=== PATIENT | male | born 1940 | race Caucasian/White ===

== ENCOUNTER 2021-05-30 13:33 | Inpatient (IN) | payer MEDICARE, OTHER, SELFPAY ==
[2021-05-30 13:34] VITALS: BP 122/84; PULSE 77; RESP 18; TEMP 36.6; O2SAT 94; BMI 32.3
--- NOTE | 2021-05-30 14:26 | CT_ITS ---
STUDY: CT BRAIN WITHOUT CONTRAST REASON FOR EXAM: Male, 80 years old. Head injury due to a fall. RADIATION DOSAGE (If Supplied By Facility): CTDIvol = ( 44.99 ) mGy, DLP = ( 846.73 ) mGycm TECHNIQUE: Transaxial CT imaging of the brain was performed without administration of intravenous contrast material. Individualized dose optimization techniques were used for this CT. COMPARISON: No relevant priors. FINDINGS: Normal soft tissue structures. Normal calvarium. There is moderate cerebral atrophy with widening of the extra-axial spaces and ventricular dilatation. There are areas of decreased attenuation within the white matter tracts of the supratentorial brain, consistent with microvascular disease changes. Normal basal ganglia and thalami. Normal brainstem. Normal cerebellum. There is no intracranial hemorrhage. There are no findings of an acute ischemic infarction. Atherosclerotic calcification of the vertebral arteries and cavernous portions of the internal carotid arteries bilaterally. Mild mucosal thickening of the ethmoid sinuses. CT/Brain/Head without Contrast IMPRESSION: Chronic involutional changes of the brain. Electronically Signed: Patricio Weinberg MD at 15:31 EDT , Service support ,
--- NOTE | 2021-05-30 14:28 | EDS_ITS ---
HPI History of Present Illness Chief Complaint: Weakness Informant: patient and family Narrative Narrative: Patient presents with son progressive weakness over 11 days. Nonproductive cough. States loss of taste and smell. No vomiting or diarrhea. States weakness has progressed. 6 days ago diagnosed with Covid at urgent care in [place]. Denies respiratory complaints. Denies chest pains. Past Thursday mechanical fall tripping hitting his head. There is no loss of conscious. He is on warfarin for history of atrial fibrillation. Overnight yesterday so weak he went down in the bathroom requiring his sons to help him up. He started using a walker. Is too weak to get around. Denies injuries from this fall yesterday. No chest or abdominal pain. No urinary symptoms. Reports having tremors. Per son normally active with yard work. Patient history of coronary stent, BPH, hypertension, hyperlipidemia, diabetes. [facility] Medical History (Updated 05/30/21 @ 20:28 by Candace Varghese) Atrial fibrillation CPAP (continuous positive airway pressure) dependence DM type 2 (diabetes mellitus, type 2) Former smoker HTN (hypertension) Irregular heart beat Sleep apnea Home Medications carvedilol 25 mg PO BID 05/30/21 [History Last Taken 05/30/21] digoxin 125 mcg PO DAILY 05/30/21 [History Last Taken 05/30/21] glimepiride 4 mg PO BID 05/30/21 [History Last Taken 05/30/21] losartan 25 mg PO DAILY 05/30/21 [History Last Taken 05/30/21] metformin 850 mg PO TID 05/30/21 [History Last Taken 05/30/21] pravastatin 40 mg PO DAILY 05/30/21 [History Last Taken 05/30/21] sitagliptin [Januvia] 50 mg PO DAILY 05/30/21 [History Last Taken 05/30/21] spironolacton-hydrochlorothiaz 1 tab PO DAILY 05/30/21 [History Last Taken 05/11 08/30] tamsulosin 0.4 mg PO DAILY 05/30/21 [History Last Taken 05/30/21] warfarin 5 mg PO DAILY 05/30/21 [History Last Taken 05/30/21] Allergy/AdvReac Type Severity Reaction Status Date / Time Penicillins Allergy Rash Verified 05/30/21 13:37 Family History (Updated 05/30/21 @ 18:[address] uGru López MD) Other Cancer Heart disease Surgical History H/O shoulder surgery History of appendectomy Social History Smoking Status: Never smoker ROS ROS ED Constitutional Constitutional ED: Denies chills, fever(s) or sweats Eyes Eyes: Denies change in vision ENT ENT ED: Denies dysphagia or sore throat Cardiovascular Cardiovascular: Denies chest pain, leg edema, palpitations or racing heartbeat Respiratory/Chest Respiratory/Chest: Reports cough; Denies dyspnea or dyspnea on exertion Gastrointestinal Gastrointestinal: Denies abdominal pain, diarrhea, nausea or vomiting Genitourinary Genitourinary ED: Denies dysuria, hematuria or urinary frequency Musculoskeletal Musculoskeletal: Denies back pain, extremity pain or neck pain Integumentary Denies rash or wounds Neurologic Neurologic: Reports weakness; Denies headache(s) or paresthesias EXAM Physical Exam Const Vital Signs: 05/30/21 13:34 05/30/21 14:11 05/30/21 16:00 Temperature 97.8 F Temperature Source Temporal Pulse Rate 77 92 Respiratory Rate 18 24 H Respiratory Effort Normal Respiratory Pattern Normal Blood Pressure 122/84 H 154/95 H Blood Pressure Mean 96 114 Pulse Ox 94 92 Oxygen Delivery Method Room Air Positive well nourished and well developed General Appearance ED: well developed and NAD HEENT Reports moist mucous membranes HEENT Narrative: Small abrasion right mid forehead, no ecchymosis bleeding or drainage. normocephalic and atraumatic Eyes PERRL, EOMs intact bilaterally and conjunctivae normal General Eye ED: Yes normal appearance of both eyes Neck no lymphadenopathy and supple General: Negative for tenderness Chest Wall Chest: Negative for tenderness Resp normal respiratory effort and normal air movement Effort and Inspection: symmetric chest movement; Negative for respiratory distress Cardio regular rate, regular rhythm and no murmurs Peripheral Pulses: pulses 2+ throughout GI normal to inspection, nondistended, normoactive bowel sounds and non-tender Palpation: Negative for guarding or rebound tenderness present Back/Spine no CVA tenderness and no thoracic nor lumbar tenderness Extremity normal to inspection General Extremety ED: Negative for edema or tenderness General Extremity: Negative for edema Neuro oriented x3 and no sensory deficits noted Sensorium / Orientation: awake and alert Skin no rashes or lesions noted and no wounds MDM MDM MDM Narrative Medical decision making narrative: Patient vital signs stable. Day 11 of Covid symptoms. Records obtained from urgent care walk-in clinic in [place] positive testing on . 6 days ago. Patient with a fall head injury on warfarin CT head negative. INR 2.5. Chest x-ray negative. Labs stable except for noted creatinine 1.8 there is no old for comparison. Is given fluids. Concerns for likely acute component of FIDEL especially since he is on losartan. Urine was negative. Discussed with family service caseworker to the ED, with his positive test 6 days out, unable to place to a skilled facility from here. Recommending hospitalization and placement from there. Discussed with son and patient. Will discuss with hospitalist service for admission. Discussed with Dr. Anne for admission. Lab Data Attestation: I reviewed the patient's lab results. Labs: Laboratory Results - last 24 hr 05/30/21 05/30/21 05/30/21 14:40 14:45 14:45 WBC 6.7 RBC 4.84 Hgb 13.8 Hct 42.2 MCV 87.2 MCH 28.5 MCHC 32.7 RDW Std Deviation 42.8 RDW Coeff of Roni 13.4 Plt Count 180 MPV 10.6 Immature Gran % (Auto) 0.400 Neut % (Auto) 85.2 H Lymph % (Auto) 10.6 L Benson % (Auto) 3.7 Eos % (Auto) 0.0 Baso % (Auto) 0.1 Absolute Neuts (auto) 5.7 Absolute Lymphs (auto) 0.71 L Nucleated RBC % 0 Differential Comment SCANNED Diff Path Review May foll PT 26.4 H INR 2.5 Sodium Potassium Chloride Carbon Dioxide Anion Gap BUN Creatinine Estim Creat Clear Calc Est GFR (MDRD) Af Amer Est GFR (MDRD) Non-Af BUN/Creatinine Ratio Glucose Calcium Urine Color Yellow Urine Clarity Clear Urine pH 5.0 Ur Specific [place] 1.015 Urine Protein 30 H Urine Glucose (UA) Normal Urine Ketones Negative Urine Occult Blood Negative Urine Nitrite Negative Urine Bilirubin Negative Urine Urobilinogen Normal Ur Leukocyte Esterase Negative Urine RBC 0 SEEN Urine WBC 0 SEEN Ur Squamous Epith Cells 0 SEEN Urine Bacteria 0 SEEN Urine Mucus 0 SEEN Digoxin 05/30/21 05/30/21 14:45 14:45 WBC RBC Hgb Hct MCV MCH MCHC RDW Std Deviation RDW Coeff of Roni Plt Count MPV Immature Gran % (Auto) Neut % (Auto) Lymph % (Auto) Benson % (Auto) Eos % (Auto) Baso % (Auto) Absolute Neuts (auto) Absolute Lymphs (auto) Nucleated RBC % Differential Comment Diff Path Review PT INR Sodium 135 L Potassium 3.5 Chloride 98 Carbon Dioxide 27.0 Anion Gap 10 BUN 52 H Creatinine 1.80 H Estim Creat Clear Calc 37.61 Est GFR (MDRD) Af Amer 47 L Est GFR (MDRD) Non-Af 39 L BUN/Creatinine Ratio 28.9 H Glucose 213 H Calcium 9.6 Urine Color Urine Clarity Urine pH Ur Specific [place] Urine Protein Urine Glucose (UA) Urine Ketones Urine Occult Blood Urine Nitrite Urine Bilirubin Urine Urobilinogen Ur Leukocyte Esterase Urine RBC Urine WBC Ur Squamous Epith Cells Urine Bacteria Urine Mucus Digoxin 0.62 L Radiography Chest X-Ray - ED: 1 View, Read by ED Physician and Read by Radiologist Diagnostic Testing: Clinical Impression(s) from Imaging Studies Brain CT 05/30/21 14:26 IMPRESSION: Chronic involutional changes of the brain. Electronically Signed: Patricio Weinberg MD at 15:31 EDT , Service support , Chest X-Ray 05/30/21 15:20 IMPRESSION: Cardiomegaly. Electronically Signed: Patricio Weinberg MD at 15:35 EDT , Service support , Discharge Plan Dx/Rx/DC Orders Clinical Impression: Weakness, FIDEL (acute kidney injury), COVID-19 Disposition Disposition: Acute Care Hospital [facility] Discharge Date/Time: 05/30/21 20:01
[2021-05-30 14:56] LABS: Bacteria 0 SEEN /hpf (None Seen); Mucous, Urine 0 SEEN /hpf (<or=2+); Red Blood Cells-Urine 0 SEEN /hpf (0-5); Squamous Epithelial Cells - UA 0 SEEN /hpf (0-5); White Blood Cells 0 SEEN /hpf (0-5)
[2021-05-30 14:58] LABS: Absolute Lymphocyte Count 0.71 X10^3/uL (0.83-4.51); Absolute Neutrophil Count 5.7 X10^3/uL (2.0-7.7); Basophil# 0.01 X10^3/uL; Basophil% 0.1 % (0-1); Hematocrit 42.2 % (40-54); Hemoglobin 13.8 g/dL (13.0-16.5); Lymphocyte # 0.71 X10^3/ul (0.83-4.51); Lymphocyte % 10.6 % (19-41); Mean Corp Hgb Conc 32.7 g/dL (32-36); Mean Corpuscular Hgb 28.5 pg (27.0-32.0); Mean Corpuscular Volume 87.2 fL (80-94); Mean Platelet Vol. 10.6 fl (6.2-12.0); Monocyte# 0.25 X10^3/uL; Monocyte% 3.7 % (0-10); NRBC Flagged by Analyzer 0 % (0-5); Neutrophil # 5.71 X10^3/uL (2.7-7.7); Neutrophil % 85.2 % (47-70); POSITIVE MORPHOLOGY YES; Platelet Count 180 K/mm3 (150-450); RBC Distribution Width CV 13.4 % (11.6-14.6); RBC Distribution Width SD 42.8 fl (35.1-43.9); Red Blood Count 4.84 M/mm3 (4.6-6.2); White Blood Count 6.7 K/mm3 (4.4-11.0)
--- NOTE | 2021-05-30 14:59 | CM.ED ---
MEME Note: Referral Source: MD Referral Reason: Covid positive diagnosis 6 days out (symptoms for 11 days) and needs rehab. [facility] called TCU/RU Admission staff, Joanie. Joanie stated that for TCU patient has to be 21 days from COVID + diagnosis and Rehab patient need to be 14 day from diagnosis. MD updated. Plan: To be determined Savi SHAH
[2021-05-30 15:03] LABS: Differential Indicated SCAN CRITERIA MET
[2021-05-30 15:07] LABS: Color, Urine Yellow (Yellow); Glucose, Dipstick Normal (Normal); Ketone-Dipstick Negative (Negative); Leukocyte Esterase-Dipstick Negative /ul (Negative); Nitrite-Dipstick Negative (Negative); Occult Blood-Urine Negative /ul (Negative); Protein-Dipstick 30 mg/dl (Negative); Specific Gravity, Urine 1.015 (1.002-1.030); Urine Bilirubin Dipstick Negative (Negative); Urine Clarity Clear (Clear); Urine Urobilinogen Normal (Normal)
[2021-05-30 15:09] LABS: Anion Gap 10 (5-15); BUN 52 mg/dL (7-18); BUN/Creat Ratio 28.9 RATIO (10-20); Calcium,Total 9.6 mg/dL (8.5-10.1); Chloride 98 mmol/L (98-107); EST Glomerular Filtration Rate 39 mL/min (>60); Est Glom Filt Rate - Afr Amer 47 mL/min (>60); Estimated Creatinine Clearance 37.61 ml/min; Glucose 213 mg/dL (74-106); Potassium 3.5 mmol/L (3.5-5.1); Sodium Level 135 mmol/L (136-145)
--- NOTE | 2021-05-30 15:20 | RAD_ITS ---
STUDY: X-RAY CHEST REASON FOR EXAM: Male, 80 years old. Cough, covid TECHNIQUE: Single AP portable view of the chest. COMPARISON: None. FINDINGS: EKG electrodes are seen. The lungs are clear and expanded. There is no demonstrated pleural abnormality. There is moderate cardiac enlargement. Normal mediastinum and carli. Normal visualized pulmonary arteries. Normal visualized aortic arch and descending thoracic aorta. There are diffuse degenerative changes of the visualized thoracic spine. Normal visualized ribs, clavicles, and shoulders. There is no demonstrated abnormality of the visualized soft tissue structures of the upper abdomen. RAD/Chest 1 View (Portable) IMPRESSION: Cardiomegaly. Electronically Signed: Patricio Weinberg MD at 15:35 EDT , Service support ,
[2021-05-30 15:55] LABS: International Normalized Ratio 2.5; Prothrombin Time (Protime)PT. 26.4 SECONDS (11.7-14.9)
[2021-05-30 15:56] LABS: Digoxin Level 0.62 ng/mL (0.80-2.00)
[2021-05-30 16:00] VITALS: BP 154/95; PULSE 92; RESP 24; O2SAT 92
[2021-05-30 16:01] LABS: Differential Comment SCANNED
[2021-05-30 16:35] VITALS: BP 154/95; PULSE 85; RESP 17; TEMP 36.1; O2SAT 99
--- NOTE | 2021-05-30 17:31 | HP.PCM.HOS_ITS ---
HPI - General General Date of Admission: 05/30/21 HPI Narrative CEDRIC TINSLEY, is a 80 M who presents with weakness secondary to Covid. He has been having progressive weakness and a cough as well as a loss of taste and smell over the last 11 days. He tested positive for Covid at an urgent care 6 days ago. He denies any shortness of breath or hypoxia. For the several days he has been walking with walker and he has had a fall recently where he tripped and hit his head. CT of the head was negative for any bleed, he is on Coumadin for history of A. fib. Last night apparently he was so weak that he slid down to the bathroom floor and could not get up on his own, needed his sons to help him up. In the ER he was found to have a glucose of 213, kidney function was 1.8 but is unknown whether or not this is baseline. And CT of the brain markable. He is not hypoxic or septic and vital signs are normal [facility] Medical History (Updated 05/30/21 @ 20:28 by Candace Varghese) Atrial fibrillation CPAP (continuous positive airway pressure) dependence DM type 2 (diabetes mellitus, type 2) Former smoker HTN (hypertension) Irregular heart beat Sleep apnea Home Medications carvedilol 25 mg PO BID 05/30/21 [History Last Taken 05/30/21] digoxin 125 mcg PO DAILY 05/30/21 [History Last Taken 05/30/21] glimepiride 4 mg PO BID 05/30/21 [History Last Taken 05/30/21] losartan 25 mg PO DAILY 05/30/21 [History Last Taken 05/30/21] metformin 850 mg PO TID 05/30/21 [History Last Taken 05/30/21] pravastatin 40 mg PO DAILY 05/30/21 [History Last Taken 05/30/21] sitagliptin [Januvia] 50 mg PO DAILY 05/30/21 [History Last Taken 05/30/21] spironolacton-hydrochlorothiaz 1 tab PO DAILY 05/30/21 [History Last Taken 05/30/21] tamsulosin 0.4 mg PO DAILY 05/30/21 [History Last Taken 05/30/21] warfarin 5 mg PO DAILY 05/30/21 [History Last Taken 05/30/21] Allergy/AdvReac Type Severity Reaction Status Date / Time Penicillins Allergy Rash Verified 05/30/21 13:37 Family History (Updated 05/30/21 @ 18:[address] Guru López MD) Other Cancer Heart disease Surgical History H/O shoulder surgery History of appendectomy Social History Smoking Status: Never smoker ROS Constitutional Constitutional: Reports weakness; Denies chills, fatigue, fever(s) or malaise Eyes Eyes: Denies blurry vision ENT HEENT: Denies headache(s) or nasal discharge Cardiovascular Cardiovascular: Denies chest pain, dyspnea on exertion or syncope Respiratory/Chest Respiratory/Chest: Denies cough, shortness of breath at rest or shortness of breath with exertion Gastrointestinal Gastrointestinal: Denies constipation, diarrhea, nausea or vomiting Genitourinary Genitourinary: Denies dysuria Neurologic Neurologic: Denies focal weakness, numbness or tremor(s) Psychiatric Psychiatric: Denies anxiety or depression Vital Signs Vital Signs Vital Signs: 05/30/21 13:34 05/30/21 14:11 05/30/21 16:00 Temperature 97.8 F Temperature Source Temporal Pulse Rate 77 92 Respiratory Rate 18 24 H Respiratory Effort Normal Respiratory Pattern Normal Blood Pressure 122/84 H 154/95 H Blood Pressure Mean 96 114 Pulse Ox 94 92 Oxygen Delivery Method Room Air 05/30/21 16:35 Temperature 97 F L Temperature Source Temporal Pulse Rate 85 Respiratory Rate 17 Respiratory Effort Respiratory Pattern Blood Pressure 154/95 H Blood Pressure Mean 114 Pulse Ox 99 Oxygen Delivery Method Weight Weight: 245 lb Body Mass Index (BMI) 32.3 Physical Exam Const alert, oriented x3 and no apparent distress General Appearance: cooperative HEENT normocephalic and moist oral mucous membranes Eyes PERRL, EOMs intact bilaterally and conjunctivae normal Neck supple and no JVD Resp normal respiratory effort, no retractions, no use of accessory muscles and clear to auscultation bilaterally Auscultation: Negative for crackles, rales, rhonchi or wheezes Cardio regular rate, regular rhythm, S1 normal heart sound, S2 normal heart sound and no murmurs GI soft to palpation, non-tender and non-distended; Negative for hepatosplenomegaly Extremity no clubbing, cyanosis or edema Skin no rashes or lesions noted Neuro no focal motor deficits and no sensory deficits noted Psych affect normal Appearance: appropriate Results Lab / Micro Data Result Diagrams: 05/31/21 07:30 05/31/21 07:30 Labs: Laboratory Results - last 24 hr 05/30/21 14:40: Urine Color Yellow, Urine Clarity Clear, Urine pH 5.0, Ur Specific [place] 1.015, Urine Protein 30 H, Urine Glucose (UA) Normal, Urine Ketones Negative, Urine Occult Blood Negative, Urine Nitrite Negative, Urine Bilirubin Negative, Urine Urobilinogen Normal, Ur Leukocyte Esterase Negative, Urine RBC 0 SEEN, Urine WBC 0 SEEN, Ur Squamous Epith Cells 0 SEEN, Urine Bacteria 0 SEEN, Urine Mucus 0 SEEN 05/30/21 14:45: WBC 6.7, RBC 4.84, Hgb 13.8, Hct 42.2, MCV 87.2, MCH 28.5, MCHC 32.7, RDW Std Deviation 42.8, RDW Coeff of Roni 13.4, Plt Count 180, MPV 10.6, Immature Gran % (Auto) 0.400, Neut % (Auto) 85.2 H, Lymph % (Auto) 10.6 L, Craig % (Auto) 3.7, Eos % (Auto) 0.0, Baso % (Auto) 0.1, Absolute Neuts (auto) 5.7, Absolute Lymphs (auto) 0.71 L, Nucleated RBC % 0, Differential Comment SCANNED, Diff Path Review December05/30/21 14:45: PT 26.4 H, INR 2.5 05/30/21 14:45: Sodium 135 L, Potassium 3.5, Chloride 98, Carbon Dioxide 27.0, Anion Gap 10, BUN 52 H, Creatinine 1.80 H, Estim Creat Clear Calc 37.61, Est GFR (MDRD) Af Amer 47 L, Est GFR (MDRD) Non-Af 39 L, BUN/Creatinine Ratio 28.9 H, Glucose 213 H, Calcium 9.6 05/30/21 14:45: Digoxin 0.62 L Radiology Impression Brain CT 05/30/21 14:26 IMPRESSION: Chronic involutional changes of the brain. Electronically Signed: Patricio Weinberg MD at 15:31 EDT , Service support , Chest X-Ray 05/30/21 15:20 IMPRESSION: Cardiomegaly. Electronically Signed: Patricio Weinberg MD at 15:35 EDT , Service support , Assessment & Plan Assessment/Plan (1) Weakness: (2) COVID-19: PLAN: 1. COVID-19 with debility -No hypoxia and he is 11 days out since onset of symptoms. -No remdesivir Decadron at this time -PT/OT for evaluation and possible placement 2. A. fib/HTN/HLD -Blood pressures are stable, will continue to monitor -We will hold his losartan as well as his spironolactone and hydrochlorothiazide combo pill secondary to renal function being elevated -Continue with Coreg, will also hold digoxin secondary to potential renal insufficiency -Can restart his blood pressure medications if this does indeed prove to be a chronic kidney disease and not an FIDEL -Continue with Coumadin 3. DM2 -Hold his home Metformin and glimepiride and Januvia -Continue with long-acting insulin as well as sliding scale insulin. -Accu-Cheks AC at bedtime, will make adjustments as necessary 4. BPH -Stable -Continue Flomax DVT: Coumadin Charges/Coding Visit Charges OBSV E&M: 23854 Initial observation care L3
[2021-05-30 18:00] VITALS: BP 154/90; PULSE 96; RESP 22; O2SAT 93
[2021-05-30] MEDS: Acetaminophen 500 MG Tablet 1000 MG PO (18:01)
[2021-05-30 20:13] VITALS: BMI 31.2
[2021-05-30 20:14] VITALS: BP 105/66; PULSE 80; RESP 28; TEMP 37.6; O2SAT 93
--- NOTE | 2021-05-30 20:24 | PCS.PANDOC ---
PANDEMIC DOCUMENTATION INITIATED: Date: 03/25/2021 Time: 190
--- NOTE | 2021-05-30 21:23 | PCS.PANDOC ---
PANDEMIC DOCUMENTATION INITIATED: Date: 03/25/2021 Time: 1900 Emergency documentation initiated 05/30/21 @ 2100
[2021-05-30 21:50] VITALS: BP 118/63; PULSE 80; RESP 20; TEMP 37.1; O2SAT 94
[2021-05-30] MEDS: Carvedilol 25 MG Tablet PO (21:51)
[2021-05-30] MEDS: Insulin Lispro 100 UNIT/ML INSULN.PEN SC (21:52)
[2021-05-30] MEDS: Insulin NPH Human 100 UNITS/ML PEN SC (21:52)
[2021-05-30 22:05] LABS: Bedside Glucose 257 mg/dL (70-110)
[2021-05-31] VITALS (14 sets, daily range): BP systolic 96–143; BP diastolic 56–87; PULSE 67–86; RESP 18–36; TEMP 37.3–39; O2SAT 90–94
[2021-05-31] MEDS: Acetaminophen 325 MG Tablet 650 MG PO ×3 (03:25→23:17)
[2021-05-31] MEDS: Insulin Lispro 100 UNIT/ML INSULN.PEN SC ×6 (05:56→21:14)
[2021-05-31 06:25] LABS: Bedside Glucose 333 mg/dL (70-110)
[2021-05-31 07:46] LABS: Absolute Lymphocyte Count 0.39 X10^3/uL (0.83-4.51); Absolute Neutrophil Count 6.3 X10^3/uL (2.0-7.7); Hematocrit 37.7 % (40-54); Hemoglobin 12.5 g/dL (13.0-16.5); Lymphocyte # 0.39 X10^3/ul (0.83-4.51); Lymphocyte % 5.7 % (19-41); Mean Corp Hgb Conc 33.2 g/dL (32-36); Mean Corpuscular Hgb 28.7 pg (27.0-32.0); Mean Corpuscular Volume 86.5 fL (80-94); Mean Platelet Vol. 10.9 fl (6.2-12.0); Monocyte# 0.16 X10^3/uL; Monocyte% 2.3 % (0-10); NRBC Flagged by Analyzer 0 % (0-5); Neutrophil # 6.25 X10^3/uL (2.7-7.7); Neutrophil % 91.6 % (47-70); POSITIVE DIFFERENTIAL YES; POSITIVE MORPHOLOGY YES; Platelet Count 170 K/mm3 (150-450); RBC Distribution Width CV 13.5 % (11.6-14.6); Red Blood Count 4.36 M/mm3 (4.6-6.2); White Blood Count 6.8 K/mm3 (4.4-11.0)
[2021-05-31 07:52] LABS: Differential Indicated SCAN CRITERIA MET
[2021-05-31 08:11] LABS: Anion Gap 9 (5-15); BUN 53 mg/dL (7-18); BUN/Creat Ratio 30.3 RATIO (10-20); Calcium,Total 9.1 mg/dL (8.5-10.1); Chloride 101 mmol/L (98-107); Creatinine, Serum 1.75 mg/dL (0.70-1.30); EST Glomerular Filtration Rate 40 mL/min (>60); Est Glom Filt Rate - Afr Amer 49 mL/min (>60); Estimated Creatinine Clearance 38.68 ml/min; Glucose 274 mg/dL (74-106); Potassium 3.5 mmol/L (3.5-5.1); Sodium Level 134 mmol/L (136-145)
[2021-05-31 08:17] LABS: Atypical Lymphocyte RARE %; Differential Comment SCANNED
[2021-05-31 08:18] LABS: International Normalized Ratio 2.6; Prothrombin Time (Protime)PT. 27.2 SECONDS (11.7-14.9)
[2021-05-31] MEDS: Enoxaparin 40 MG/0.4 ML Syringe SC (09:15)
[2021-05-31] MEDS: Carvedilol 25 MG Tablet PO ×2 (09:15→21:14)
[2021-05-31] MEDS: Pravastatin 40 MG Tablet PO (09:15)
[2021-05-31] MEDS: Tamsulosin HCl 0.4 MG Capsule PO (09:15)
[2021-05-31] MEDS: Glucerna Shake 120 ML LIQUID PO (09:16)
--- NOTE | 2021-05-31 09:31 | CASEMGMT ---
Social Work Note SW reviewed chart. Pt is 7 days out from COVID+ test. SW called list of SNF that are accepting COVID+ pt's before 10-14 days post positive test. SW called [facility] in [place] who is no longer taking COVID pt's. MEME called Sarwta in admissions at [place] and left message inquiring about bed availability. MEME placed a call to [facility] and no beds available. MEME placed a call to [facility] and spoke with Stephanie in admissions. Stephanie states beds are tight, will be willing to review referral though. MEME informed Stephanie that this worker would need to check with pt first before making a referral, this worker was just calling to check on bed availability. SW to meet with pt to discuss SNF placement. Alisha Peña ACT TUTOR, DIRECTOR INSTRUCTIONAL MATERIAL
--- NOTE | 2021-05-31 10:00 | PCM.PN.HOSP ---
Subjective Subjective Doing well overnight, continues to deny any shortness of breath. He is still weak pending evaluation by PT Objective Data Objective Data Vital Signs: Vital Signs Temp Pulse Resp BP Pulse Ox 99.7 F H 75 26 H 109/56 L 93 05/31/21 09:12 05/31/21 09:12 05/31/21 09:12 05/31/21 09:12 05/31/21 09:12 Oxygen Delivery Method Room Air Weight: 237 lb Body Mass Index (BMI) 31.2 Intake & Output: Intake and Output for Last 24 Hours 05/30/21 05/31/21 06/01/21 03:59 03:59 03:59 Intake Total 650 / 650 Output Total 200 / 200 200 / 200 Balance 450 / 450 -200 / -200 Lab / Micro Data Result Diagrams: 05/31/21 07:30 05/31/21 07:30 Labs: Laboratory Results - last 24 hr 05/30/21 14:40: Urine Color Yellow, Urine Clarity Clear, Urine pH 5.0, Ur Specific [place] 1.015, Urine Protein 30 H, Urine Glucose (UA) Normal, Urine Ketones Negative, Urine Occult Blood Negative, Urine Nitrite Negative, Urine Bilirubin Negative, Urine Urobilinogen Normal, Ur Leukocyte Esterase Negative, Urine RBC 0 SEEN, Urine WBC 0 SEEN, Ur Squamous Epith Cells 0 SEEN, Urine Bacteria 0 SEEN, Urine Mucus 0 SEEN 05/30/21 14:45: WBC 6.7, RBC 4.84, Hgb 13.8, Hct 42.2, MCV 87.2, MCH 28.5, MCHC 32.7, RDW Std Deviation 42.8, RDW Coeff of Roni 13.4, Plt Count 180, MPV 10.6, Immature Gran % (Auto) 0.400, Neut % (Auto) 85.2 H, Lymph % (Auto) 10.6 L, [place] % (Auto) 3.7, Eos % (Auto) 0.0, Baso % (Auto) 0.1, Absolute Neuts (auto) 5.7, Absolute Lymphs (auto) 0.71 L, Nucleated RBC % 0, Differential Comment SCANNED, Diff Path Review December05/30/21 14:45: PT 26.4 H, INR 2.5 05/30/21 14:45: Sodium 135 L, Potassium 3.5, Chloride 98, Carbon Dioxide 27.0, Anion Gap 10, BUN 52 H, Creatinine 1.80 H, Estim Creat Clear Calc 37.61, Est GFR (MDRD) Af Amer 47 L, Est GFR (MDRD) Non-Af 39 L, BUN/Creatinine Ratio 28.9 H, Glucose 213 H, Calcium 9.6 05/30/21 14:45: Digoxin 0.62 L 05/30/21 21:46: POC Glucose 257 H 05/31/21 05:56: POC Glucose 333 H 05/31/21 07:30: WBC 6.8, RBC 4.36 L, Hgb 12.5 L, Hct 37.7 L, MCV 86.5, MCH 28.7, MCHC 33.2, RDW Std Deviation 43.0, RDW Coeff of Roni 13.5, Plt Count 170, MPV 10.9, Immature Gran % (Auto) 0.400, Neut % (Auto) 91.6 H, Lymph % (Auto) 5.7 L, [place] % (Auto) 2.3, Eos % (Auto) 0.0, Baso % (Auto) 0.0, Absolute Neuts (auto) 6.3, Absolute Lymphs (auto) 0.39 L, Nucleated RBC % 0, Differential Comment SCANNED, Atypical Lymphocytes RARE 05/31/21 07:30: Sodium 134 L, Potassium 3.5, Chloride 101, Carbon Dioxide 24.0, Anion Gap 9, BUN 53 H, Creatinine 1.75 H, Estim Creat Clear Calc 38.68, Est GFR (MDRD) Af Amer 49 L, Est GFR (MDRD) Non-Af 40 L, BUN/Creatinine Ratio 30.3 H, Glucose 274 H, Calcium 9.1 05/31/21 07:30: PT 27.2 H, INR 2.6 Radiography Diagnostic Testing: Radiology Impression Brain CT 05/30/21 14:26 IMPRESSION: Chronic involutional changes of the brain. Electronically Signed: Patricio Weinberg MD at 15:31 EDT , Service support , Chest X-Ray 05/30/21 15:20 IMPRESSION: Cardiomegaly. Electronically Signed: Patricio Weinberg MD at 15:35 EDT , Service support , Physical Exam Const alert, oriented x3 and no apparent distress General Appearance: cooperative HEENT normocephalic and moist oral mucous membranes Eyes PERRL, EOMs intact bilaterally and conjunctivae normal Neck supple and no JVD Resp normal respiratory effort, no retractions, no use of accessory muscles and clear to auscultation bilaterally Auscultation: Negative for crackles, rales, rhonchi or wheezes Cardio regular rate, regular rhythm, S1 normal heart sound, S2 normal heart sound and no murmurs GI soft to palpation, non-tender and non-distended; Negative for hepatosplenomegaly Extremity no clubbing, cyanosis or edema Skin no rashes or lesions noted Neuro no focal motor deficits and no sensory deficits noted Psych affect normal Appearance: appropriate Assessment & Plan Assessment/Plan (1) Weakness: (2) COVID-19: PLAN: 1. COVID-19 with debility -No hypoxia and symptoms started on 05/19/2021, and his test was on 05/24/2021 -No remdesivir or Decadron at this time -PT/OT for evaluation and possible placement 2. A. fib/HTN/HLD -Blood pressures are stable, will continue to monitor -We will hold his losartan as well as his spironolactone and hydrochlorothiazide combo pill secondary to renal function being elevated -Continue with Coreg, will also hold digoxin secondary to potential renal insufficiency -Can restart his blood pressure medications if this does indeed prove to be a chronic kidney disease and not an FIDEL -Continue with Coumadin 3. DM2 -Hold his home Metformin and glimepiride and Januvia -Continue with long-acting insulin as well as sliding scale insulin. We will add mealtime today -Accu-Cheks AC at bedtime, will make adjustments as necessary 4. BPH -Stable -Continue Flomax DVT: Coumadin Charges/Coding Visit Charges OBSV E&M: 54382 Subsequent observation care L2
[2021-05-31 11:01] LABS: Bedside Glucose 354 mg/dL (70-110)
--- NOTE | 2021-05-31 12:05 | CASEMGMT ---
Social Work Assessment SW spoke with PT/OT, they are stating pt is able to return home. Referral Date: 05/31/2021 Date of Assessment: 05/31/21 Personal Status: SW met with pt to complete initial assessment. SW introduced self and role at [facility]. Pt is alert and orientated x3, answers questions appropriately. Living Arrangements: Pt states that he lives with his in a two story home with one step to enter. Pt states there are no railings by the steps. Pt states that he primarily stays on one floor while his will go up and down the floors. Pt states that he and his came to the ED last night with his son and his went to stay at his son's place last night. PCP: Eddi Vickers Pharmacy: [facility] DME: eunice Tristan ADLs: Independent Transportation: Pt drives self Advanced Directives: Pt states he is not sure if he completed HCPOA/LW or not. SNF: None HHC: None Substance Abuse Hx: None Mental Health Hx: None SW spoke with pt about discharge plans. MEME informed pt that if he felt like he needed SNF he would have to go to a SNF in [place] as no local SNF are accepting COVID + pt's. Pt states that he doensn't want to go to a SNF and wants to go back home. SW asked pt if he would be going back to his home in [place] or his son's place. Pt states he would be going back to his home in [place]. SW asked pt why he couldn't go to his son's house and pt states It never works out when I go there. SW asked pt if he had a good relationship with his son and pt states he does, states other family members he doesn't. SW informed pt that [facility] could be arranged for pt at home (RN, PT/OT.) Pt agreeable to [facility]. Patient was provided a list of [facility] providers including quality and resource use data and consistent with the patient?s preferred geographic region, medical needs, and insurance network. Pt's preferred provider is [facility]. SW asked pt if this worker could call his son to give update and pt states he may be working, but gave this worker permission to call his son. MEME placed a call to pt's son Eddi who answered the phone as Galileo. MEME introduced self and role at [facility]. SW updated Galileo that PT/OT are stating pt can return home, HHC to be arranged. Eddi states that he took pt's home last night so she is back at their home in [place]. Galileo asked if pt is able to walk and this worker reviewed PT/OT notes with Eddi, pt was able to walk 35ft standby assist. Galileo states he just wanted to make sure as the other day pt was so weak he couldn't get up from the couch. MEME again informed Galileo that pt was able to walk today with therapy. MEME informed Galileo that HHC can be arranged for RN and PT/OT at home. Galileo states understanding, asked to be called when pt discharges. MEME updated RN CM on request for [facility] HHC. Plan: Home with HHC Alisha Peña LPN INSTRUCTOR, INSPECTOR AND CLERK
--- NOTE | 2021-05-31 12:36 | CASEMGMT ---
Addendum entered by Mariza Ruiz 05/31/21 16:20: Received tc from Charmaine at [facility] who states pt is out of service area. EZIO LANDEROS in to pt room to obtain a second and third HHC option. Pt states he does not know. He has the list, but did not want to discuss. Made pt aware that this RN LETI would like to set this up today in case he should be dc'd over the weekend. Pt states he needs to think about it. Unable to make referral for HHC at this time. EZIO LANDEROS explained [facility] form, patient voiced understanding. Pt signed form and filed in chart. Pt provided with a copy of signed [facility] form. Patient had no further questions or concerns at this time. Original Note: EZIO LANDEROS notified by SW that pt would be interested in [facility]. TC to Charmaine at [facility], left message with referral for SN, PT and OT. Awaiting returned call.
[2021-05-31 15:44] LABS: Pathologist Review Reviewed
[2021-05-31 16:45] LABS: Bedside Glucose 239 mg/dL (70-110)
[2021-05-31 21:31] LABS: Bedside Glucose 210 mg/dL (70-110)
[2021-05-31] MEDS: MELATONIN 3 MG TABLET PO (23:18)
[2021-06-01] VITALS (10 sets, daily range): BP systolic 110–123; BP diastolic 58–79; PULSE 64–72; RESP 16–28; TEMP 36.9–37.4; O2SAT 91–94
[2021-06-01 07:35] LABS: Absolute Neutrophil Count 5.1 X10^3/uL (2.0-7.7); Basophil# 0.01 X10^3/uL; Basophil% 0.2 % (0-1); Eosinophil# 0.02 X10^3/uL; Eosinophils% 0.4 % (0-5); Hematocrit 38.1 % (40-54); Hemoglobin 12.4 g/dL (13.0-16.5); Lymphocyte % 7.1 % (19-41); Mean Corp Hgb Conc 32.5 g/dL (32-36); Mean Corpuscular Hgb 28.6 pg (27.0-32.0); Mean Platelet Vol. 10.8 fl (6.2-12.0); Monocyte# 0.11 X10^3/uL; Monocyte% 1.9 % (0-10); NRBC Flagged by Analyzer 0 % (0-5); Neutrophil # 5.09 X10^3/uL (2.7-7.7); Neutrophil % 89.9 % (47-70); POSITIVE DIFFERENTIAL YES; POSITIVE MORPHOLOGY YES; Platelet Count 183 K/mm3 (150-450); RBC Distribution Width CV 13.4 % (11.6-14.6); RBC Distribution Width SD 43.6 fl (35.1-43.9); Red Blood Count 4.33 M/mm3 (4.6-6.2); White Blood Count 5.7 K/mm3 (4.4-11.0)
[2021-06-01 07:41] LABS: Differential Indicated SCAN CRITERIA MET
[2021-06-01 07:49] LABS: Anion Gap 9 (5-15); BUN 65 mg/dL (7-18); BUN/Creat Ratio 32.7 RATIO (10-20); Calcium,Total 9.1 mg/dL (8.5-10.1); Chloride 101 mmol/L (98-107); Creatinine, Serum 1.99 mg/dL (0.70-1.30); EST Glomerular Filtration Rate 35 mL/min (>60); Est Glom Filt Rate - Afr Amer 42 mL/min (>60); Estimated Creatinine Clearance 34.02 ml/min; Glucose 234 mg/dL (74-106); Potassium 3.4 mmol/L (3.5-5.1); Sodium Level 135 mmol/L (136-145)
[2021-06-01] MEDS: Insulin Lispro 100 UNIT/ML INSULN.PEN SC ×5 (07:53→21:54)
[2021-06-01 07:54] LABS: Prothrombin Time (Protime)PT. 30.2 SECONDS (11.7-14.9)
[2021-06-01] MEDS: Tamsulosin HCl 0.4 MG Capsule PO (07:54)
[2021-06-01] MEDS: Carvedilol 25 MG Tablet PO ×2 (07:54→21:54)
[2021-06-01] MEDS: Pravastatin 40 MG Tablet PO (07:55)
[2021-06-01 08:06] LABS: Bedside Glucose 237 mg/dL (70-110)
--- NOTE | 2021-06-01 08:51 | PN.HOSP_ITS ---
Subjective Subjective Feels a bit better today, still no shortness of breath. But he does feel weak and rundown. Objective Data Objective Data Vital Signs: Vital Signs Temp Pulse Resp BP Pulse Ox 99.1 F 70 16 116/64 93 06/01/21 07:50 06/01/21 07:50 06/01/21 07:50 06/01/21 07:50 06/01/21 07:50 Oxygen Flow Rate (L/min) [ 0 AMBULATING on Room Air] Oxygen Flow Rate (L/min) [At 0 REST on Room Air] Oxygen Delivery Method CPAP Weight: 237 lb Body Mass Index (BMI) 31.2 Intake & Output: Intake and Output for Last 24 Hours 05/31/21 06/01/21 06/02/21 03:59 03:59 03:59 Intake Total 650 / 650 700 / 700 Output Total 200 / 200 750 / 750 275 / 275 Balance 450 / 450 -50 / -50 -275 / -275 Lab / Micro Data Result Diagrams: 06/01/21 06:40 06/01/21 06:40 Labs: Laboratory Results - last 24 hr 05/30/21 14:45: Diff Path Review Reviewed 05/31/21 10:47: POC Glucose 354 H 05/31/21 16:27: POC Glucose 239 H 05/31/21 21:12: POC Glucose 210 H 06/01/21 06:40: PT 30.2 H, INR 3.0 06/01/21 06:40: WBC 5.7, RBC 4.33 L, Hgb 12.4 L, Hct 38.1 L, MCV 88.0, MCH 28.6, MCHC 32.5, RDW Std Deviation 43.6, RDW Coeff of Roni 13.4, Plt Count 183, MPV 10.8, Immature Gran % (Auto) 0.500, Neut % (Auto) 89.9 H, Lymph % (Auto) 7.1 L, Addison % (Auto) 1.9, Eos % (Auto) 0.4, Baso % (Auto) 0.2, Absolute Neuts (auto) 5.1, Absolute Lymphs (auto) 0.40 L, Nucleated RBC % 0 06/01/21 06:40: Sodium 135 L, Potassium 3.4 L, Chloride 101, Carbon Dioxide 25.0, Anion Gap 9, BUN 65 H, Creatinine 1.99 H, Estim Creat Clear Calc 34.02, Est GFR (MDRD) Af Amer 42 L, Est GFR (MDRD) Non-Af 35 L, BUN/Creatinine Ratio 32.7 H, Glucose 234 H, Calcium 9.1 06/01/21 07:44: POC Glucose 237 H Micro: Microbiology 05/31/21 13:50 Sputum, Expectorated/Coughed Gram Stain - Preliminary Physical Exam Const alert, oriented x3 and no apparent distress General Appearance: cooperative HEENT normocephalic and moist oral mucous membranes Eyes PERRL, EOMs intact bilaterally and conjunctivae normal Neck supple and no JVD Resp normal respiratory effort, no retractions, no use of accessory muscles and clear to auscultation bilaterally Auscultation: Negative for crackles, rales, rhonchi or wheezes Cardio regular rate, regular rhythm, S1 normal heart sound, S2 normal heart sound and no murmurs GI soft to palpation, non-tender and non-distended; Negative for hepatosplenomegaly Extremity no clubbing, cyanosis or edema Skin no rashes or lesions noted Neuro no focal motor deficits and no sensory deficits noted Psych affect normal Appearance: appropriate Assessment & Plan Assessment/Plan (1) Weakness: (2) COVID-19: PLAN: 1. COVID-19 with debility -No hypoxia and symptoms started on 05/19/2021, and his test was on 05/24/2021 -No remdesivir or Decadron at this time -PT/OT for evaluation and possible placement -Unsure if his renal function going up to 1.99 is once again baseline for him or whether or not this is worsening in renal function. We will start him on some IV fluids today and check magnesium and phosphorus given his potassium being 3.4 2. A. fib/HTN/HLD -Blood pressures are stable, will continue to monitor -We will hold his losartan as well as his spironolactone and hydrochlorothiazide combo pill secondary to renal function being elevated -Continue with Coreg, will also hold digoxin secondary to potential renal insufficiency -Can restart his blood pressure medications if this does indeed prove to be a chronic kidney disease and not an FIDEL -Continue with Coumadin 3. DM2 -Hold his home Metformin and glimepiride and Januvia -Continue with long-acting insulin as well as sliding scale insulin. We will add mealtime today -Accu-Cheks AC at bedtime, will make adjustments as necessary 4. BPH -Stable -Continue Flomax DVT: Coumadin Charges/Coding Visit Charges OBSV E&M: 68281 Subsequent observation care L2
[2021-06-01 08:53] LABS: Differential Comment SCANNED
[2021-06-01 09:13] LABS: Magnesium 2.3 mg/dL (1.6-2.6)
[2021-06-01] MEDS: 0.9% Normal Saline 1,000 ML 75 ML IV ×2 (09:44→21:57)
[2021-06-01] MEDS: Insulin Lispro 100 UNIT/ML INSULN.PEN 10 UNIT SC ×2 (11:12→16:27)
[2021-06-01 11:25] LABS: Bedside Glucose 343 mg/dL (70-110)
--- NOTE | 2021-06-01 13:28 | CASEMGMT ---
Per Josie HOLGUIN, pt's son called in and states concerns with caring for pt at home. Savi VALENTINE aware, voices understanding. Jeaneth HOLGUIN CM
--- NOTE | 2021-06-01 15:08 | CM.ED ---
Addendum entered by Savi Briones 06/01/21 18:49: MEME updated RN that patient's son, Eddi will be calling. She spoke to patients son Eddi and updated him that patient not discharged today. MEME called patient's son, Eddi, to discuss with him the discharge plan for patient. Eddi indicated that he is getting different stories and doesn' know what to believe. MEME asked him to elaborate to his concerns and he said yesterday a nurse told me he walked 40 feet and today a nurse said he walked 35 feet yesterday. Eddi said I was told by the community mental health social worker yesterday that he would go home but today you are telling me something differently and the other community mental health social worker told me he would need to be in the hospital till next Thursday. MEME again voiced that patient's condition is updated and reviewed daily. MEME asked Eddi his plan regarding his father. Eddi said he felt no one was telling him anything and if they would just tell me if this was my dad.. he would need this etc. MEME explained that it is important to speak to patient's family to determine what they think is best for patient and thus we are having this discussion. MEME indicated that PT said today continue PT and Eddi said but what is the rest of the sentence. Eddi said that if his dad is able to go home his dad can go to his house and then his brother will be with him during the day and Eddi will be with patient at night. Eddi said that if patient needs SNF there preference would be [facility]. Eddi said that they would want Home Health if patient goes home. Eddi said that they would want home health there daily and MEME explained that Home Health makes an assessment on how often the patient needs RN and PT/OT and other services but RN's do not come daily. Eddi said that he will wait and see and try to pin the nurse and doctor down regarding what patient needs at discharge. MEME reviewed the chart and no green sheet was on the chart for home health. MEME spoke to [facility] customer success specialist and updated her regarding the contact with patient's family. MEME asked [facility] what would happen if patient needed Home Health but there was no green sheet and she indicated they would call the solution director RN for casemanagement. Plan: To be determined Savi Briones Original Note: MEME Note Referral Source: CM Referral Source: Discharge Planning CM advised that patient walked 25 feet yesterday and patient's son is concerned about caring for him. MEME called patient's son. He explained that his mom is at home and weak and he and his brothers are taking turns caring for her at night but they all work and are not retired. Patient's son, Eddi, said that patient could come and stay with them and they could get a hospital bed delivered to their house as he checked with [employer]. 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 MEME asked patient's son what he felt that the patient needed and if patient needed a SNF and he said I don't know. Eddi said that he talked to the RN this morning but wants to speak to the RN or MD and work backward regarding what patient's strength is and what schedule are they talking about discharge. MEME explained that yesterday patient walked 40 feet and today it was 25 feet. MEME explained that with COVID the patient's are evaluated daily as to their readiness for discharge. Eddi said that he will speak to RN and then call this bond writer back. MEME spoke to patient's RN Josie and she spoke to Eddi and he stated that it was helpful as he learned patient was not being discharged today. MEME attempted 2x to speak to patient about his discharge plan. First time, patient was working with PT and was in the bathroom and 2nd time there was no answer. MEME will continue to attempt to speak fo family. Plan: To be determined Savi DICKSON
[2021-06-01 16:45] LABS: Bedside Glucose 272 mg/dL (70-110)
[2021-06-01 22:15] LABS: Bedside Glucose 173 mg/dL (70-110)
[2021-06-02 02:20] VITALS: BP 117/79; PULSE 74; RESP 18; TEMP 37.1; O2SAT 92
[2021-06-02 06:01] LABS: Absolute Lymphocyte Count 0.52 X10^3/uL (0.83-4.51); Absolute Neutrophil Count 3.6 X10^3/uL (2.0-7.7); Basophil# 0.01 X10^3/uL; Basophil% 0.2 % (0-1); Eosinophil# 0.07 X10^3/uL; Eosinophils% 1.6 % (0-5); Hematocrit 36.5 % (40-54); Hemoglobin 11.6 g/dL (13.0-16.5); Lymphocyte # 0.52 X10^3/ul (0.83-4.51); Lymphocyte % 11.7 % (19-41); Mean Corp Hgb Conc 31.8 g/dL (32-36); Mean Corpuscular Hgb 27.9 pg (27.0-32.0); Mean Corpuscular Volume 87.7 fL (80-94); Mean Platelet Vol. 10.5 fl (6.2-12.0); Monocyte# 0.21 X10^3/uL; Monocyte% 4.7 % (0-10); NRBC Flagged by Analyzer 0 % (0-5); Neutrophil # 3.57 X10^3/uL (2.7-7.7); Neutrophil % 80.7 % (47-70); POSITIVE DIFFERENTIAL YES; POSITIVE MORPHOLOGY YES; Platelet Count 200 K/mm3 (150-450); RBC Distribution Width CV 13.4 % (11.6-14.6); RBC Distribution Width SD 43.1 fl (35.1-43.9); Red Blood Count 4.16 M/mm3 (4.6-6.2); White Blood Count 4.4 K/mm3 (4.4-11.0)
[2021-06-02 06:03] LABS: Differential Indicated SCAN CRITERIA MET
[2021-06-02 06:13] LABS: International Normalized Ratio 3.8; Prothrombin Time (Protime)PT. 36.8 SECONDS (11.7-14.9)
[2021-06-02 06:25] LABS: Anion Gap 9 (5-15); BUN 53 mg/dL (7-18); BUN/Creat Ratio 37.3 RATIO (10-20); Calcium,Total 8.8 mg/dL (8.5-10.1); Chloride 104 mmol/L (98-107); Creatinine, Serum 1.42 mg/dL (0.70-1.30); EST Glomerular Filtration Rate 51 mL/min (>60); Est Glom Filt Rate - Afr Amer 62 mL/min (>60); Estimated Creatinine Clearance 47.67 ml/min; Glucose 163 mg/dL (74-106); Potassium 3.2 mmol/L (3.5-5.1); Sodium Level 139 mmol/L (136-145)
[2021-06-02 06:45] LABS: Atypical Lymphocyte 1+ %; Differential Comment SCANNED
[2021-06-02] MEDS: Insulin Lispro 100 UNIT/ML INSULN.PEN 10 UNIT SC ×2 (07:34→11:13)
[2021-06-02] MEDS: Insulin Lispro 100 UNIT/ML INSULN.PEN SC ×2 (07:34→11:14)
[2021-06-02] MEDS: Potassium Chloride Oral Tablet 20 MEQ 60 MEQ PO (07:39)
[2021-06-02] MEDS: Carvedilol 25 MG Tablet PO (07:40)
[2021-06-02] MEDS: Pravastatin 40 MG Tablet PO (07:40)
[2021-06-02] MEDS: Tamsulosin HCl 0.4 MG Capsule PO (07:40)
[2021-06-02 07:44] VITALS: BP 124/77; PULSE 66; RESP 22; TEMP 36.8; O2SAT 92
[2021-06-02 08:31] LABS: Bedside Glucose 197 mg/dL (70-110)
[2021-06-02 10:19] VITALS: O2SAT 92
[2021-06-02] MEDS: 0.9% Normal Saline 1,000 ML 75 ML IV (10:19)
[2021-06-02 11:26] LABS: Bedside Glucose 227 mg/dL (70-110)
[2021-06-02 11:56] VITALS: O2SAT 92
--- NOTE | 2021-06-02 13:14 | DCINST_ITS ---
Discharge Instructions Diet Discharge Diet: Low fat / Low cholesterol and Carb Control Diet Activity Discharge Activity: Return to Normal Activity Dressing / Incision Call your doctor if you observe: Fever of 101 or Higher, Shortness of breath, Dizziness, Fainting spells, Swelling in the ankles, Chest pain and Increased palpitations (irregular heartbeat) Follow Up Care Test Results: Test results from this visit will be discussed in further detail at your follow-up appointment, if applicable. Discharge Plan Admission Admit Date/Time: 06/01/21 10:05 Attending Provider: Guru López Primary Care Provider: Eddi Vickers Instructions Additional Instructions / Restrictions: Please follow-up with your PCP in 3 to 5 days to check your kidney function with a BMP. He did have an acute kidney injury which was improved with some IV fluids. Her blood pressure here in the hospital was a little bit low so continue with just her Coreg for now, if you do notice that her blood pressure is slowly climbing then I would restart your losartan. Also given the fact that you had some kidney injury I held your Metformin for now, please try to stick to a low carb diet and take and follow-up with your PCP to get outpatient lab work completed. You will complete your quarantine from [facility] this 06/08/2021. Discharge Orders/Prescriptions Prescriptions: Continued carvedilol 25 mg Tablet 25 mg PO BID RF: 0 pravastatin 40 mg Tablet 40 mg PO DAILY RF: 0 tamsulosin 0.4 mg Capsule 0.4 mg PO DAILY RF: 0 glimepiride 4 mg Tablet 4 mg PO BID RF: 0 warfarin 5 mg Tablet 5 mg PO DAILY RF: 0 digoxin 125 mcg (0.125 mg) Tablet 125 mcg PO DAILY RF: 0 Januvia 50 mg Tablet 50 mg PO DAILY RF: 0 Held spironolacton-hydrochlorothiaz 25-25 mg Tablet 1 tab PO DAILY RF: 0 Hold Instructions: Resume on 06/06/21. metformin 850 mg Tablet 850 mg PO TID RF: 0 Hold Instructions: Resume on 06/06/21. losartan 25 mg Tablet 25 mg PO DAILY RF: 0 Hold Instructions: Resume on 06/06/21. Referrals / Follow Up: Eddi Vickers MD [Primary Care Provider] - Within 1 Week Disposition Disposition (needs filled in before D/C Order can be placed): Home Health Service
--- NOTE | 2021-06-02 13:20 | PCM.DC.SUM ---
Providers Date of Admission: 06/01/21 Primary Care Physician: Dr. Cedric Vickers MD Reason For Visit: COVID WEAKNESS Diagnosis Discharge Diagnosis (1) Weakness: Status: Acute Code(s): R53.1 - Weakness (2) COVID-19: Status: Acute Code(s): U07.1 - COVID-19 Medications at Discharge Home Medications Januvia 50 mg PO DAILY 05/30/21 carvedilol 25 mg PO BID 05/30/21 digoxin 125 mcg PO DAILY 05/30/21 glimepiride 4 mg PO BID 05/30/21 losartan 25 mg PO DAILY 05/30/21 metformin 850 mg PO TID 05/30/21 pravastatin 40 mg PO DAILY 05/30/21 spironolacton-hydrochlorothiaz 1 tab PO DAILY 05/30/21 tamsulosin 0.4 mg PO DAILY 05/30/21 warfarin 5 mg PO DAILY 05/30/21 Hospital Course Operations None Procedures None Summary of Care Provided Minutes Spent on Discharge: 37 Hospital Course: Per HPI: CEDRIC TINSLEY, is a 80 M who presents with weakness secondary to Covid. He has been having progressive weakness and a cough as well as a loss of taste and smell over the last 11 days. He tested positive for Covid at an urgent care 6 days ago. He denies any shortness of breath or hypoxia. For the several days he has been walking with walker and he has had a fall recently where he tripped and hit his head. CT of the head was negative for any bleed, he is on Coumadin for history of A. fib. Last night apparently he was so weak that he slid down to the bathroom floor and could not get up on his own, needed his sons to help him up. In the ER he was found to have a glucose of 213, kidney function was 1.8 but is unknown whether or not this is baseline. And CT of the brain markable. He is not hypoxic or septic and vital signs are normal Hospital Course: 1. COVID-19 with debility/FIDEL -No hypoxia and symptoms started on 05/19/2021, and his test was on 05/24/2021 -No remdesivir or Decadron at this time -PT/OT for evaluation and possible placement -Unsure if his renal function going up to 1.99 is once again baseline for him or whether or not this is worsening in renal function. We will start him on some IV fluids 05/31/2021 and check magnesium and phosphorus given his potassium being 3.4 -06/02/2021: Mag and Phos were normal yesterday, his kidney function is now down to 1.42. His blood pressures had been stable just on his Coreg therefore recommend holding his losartan, his Aldactone, and his hydrochlorothiazide until he can follow-up with his PCP in 3 to 5 days to obtain lab work to make sure that his renal function is staying stable. I also held his Metformin for the same reason. I do think he can restart his digoxin to maintain normal sinus rhythm. Physical therapy did work with him and stated that he did not need to go to a penitentiary, I did ask for home physical therapy to be set up which will happen tomorrow. I discussed with him the plan for discharge today and he would like to go home. He expressed understanding of the risks and benefits of going home today and was still like to go home. He did have an ambulatory pulse ox prior to discharge which did not demonstrate a need for home oxygen. 2. A. fib/HTN/HLD -Blood pressures are stable, will continue to monitor -We will hold his losartan as well as his spironolactone and hydrochlorothiazide combo pill secondary to renal function being elevated -Continue with Coreg, will also hold digoxin secondary to potential renal insufficiency -Can restart his blood pressure medications if this does indeed prove to be a chronic kidney disease and not an FIDEL -Continue with Coumadin 3. DM2 -Hold his home Metformin and glimepiride and Januvia -Continue with long-acting insulin as well as sliding scale insulin. We will add mealtime today -Accu-Cheks AC at bedtime, will make adjustments as necessary 4. BPH -Stable -Continue Flomax Physical Exam Const alert, oriented x3 and no apparent distress General Appearance: cooperative HEENT normocephalic and moist oral mucous membranes Eyes PERRL, EOMs intact bilaterally and conjunctivae normal Neck supple and no JVD Resp normal respiratory effort, no retractions, no use of accessory muscles and clear to auscultation bilaterally Auscultation: Negative for crackles, rales, rhonchi or wheezes Cardio regular rate, regular rhythm, S1 normal heart sound, S2 normal heart sound and no murmurs GI soft to palpation, non-tender and non-distended; Negative for hepatosplenomegaly Extremity no clubbing, cyanosis or edema Skin no rashes or lesions noted Neuro no focal motor deficits and no sensory deficits noted Psych affect normal Appearance: appropriate Weight / BMI Weight Weight: 237 lb Body Mass Index (BMI) 31.2 ABG / Lab / Microbiology Data Result Diagrams: 06/02/21 05:27 06/02/21 05:27 Laboratory: Laboratory Results - last 24 hr 06/01/21 16:26: POC Glucose 272 H 06/01/21 21:51: POC Glucose 173 H 06/02/21 05:27: PT 36.8 H, INR 3.8 06/02/21 05:27: WBC 4.4, RBC 4.16 L, Hgb 11.6 L, Hct 36.5 L, MCV 87.7, MCH 27.9, MCHC 31.8 L, RDW Std Deviation 43.1, RDW Coeff of Roni 13.4, Plt Count 200, MPV 10.5, Immature Gran % (Auto) 1.100 H, Neut % (Auto) 80.7 H, Lymph % (Auto) 11.7 L, Sampson % (Auto) 4.7, Eos % (Auto) 1.6, Baso % (Auto) 0.2, Absolute Neuts (auto) 3.6, Absolute Lymphs (auto) 0.52 L, Nucleated RBC % 0, Differential Comment SCANNED, Atypical Lymphocytes 1+ 06/02/21 05:27: Sodium 139, Potassium 3.2 L, Chloride 104, Carbon Dioxide 26.0, Anion Gap 9, BUN 53 H, Creatinine 1.42 H, Estim Creat Clear Calc 47.67, Est GFR (MDRD) Af Amer 62, Est GFR (MDRD) Non-Af 51 L, BUN/Creatinine Ratio 37.3 H, Glucose 163 H, Calcium 8.8 06/02/21 07:29: POC Glucose 197 H 06/02/21 11:11: POC Glucose 227 H Microbiology: Microbiology 05/31/21 13:50 Sputum, Expectorated/Coughed Gram Stain - Final 05/31/21 13:50 Sputum, Expectorated/Coughed Respiratory Culture - Preliminary Presumptive C albicans Mixed Anabel D/C Instructions Discharge Diet: Low fat / Low cholesterol and Carb Control Diet Call your doctor if you observe: Fever of 101 or Higher, Shortness of breath, Dizziness, Fainting spells, Swelling in the ankles, Chest pain and Increased palpitations (irregular heartbeat) Meaningful Use Info Meaningful Use Diagnoses (Choose all that apply): None applicable Discharge Plan Admission Admit Date/Time: 06/01/21 10:05 Attending Provider: Guru López Primary Care Provider: Cedric Vickers Instructions Additional Instructions / Restrictions: Please follow-up with your PCP in 3 to 5 days to check your kidney function with a BMP. He did have an acute kidney injury which was improved with some IV fluids. Her blood pressure here in the hospital was a little bit low so continue with just her Coreg for now, if you do notice that her blood pressure is slowly climbing then I would restart your losartan. Also given the fact that you had some kidney injury I held your Metformin for now, please try to stick to a low carb diet and take and follow-up with your PCP to get outpatient lab work completed. You will complete your quarantine from [facility] this 06/08/2021. Discharge Orders/Prescriptions Prescriptions: Continued carvedilol 25 mg Tablet 25 mg PO BID RF: 0 pravastatin 40 mg Tablet 40 mg PO DAILY RF: 0 tamsulosin 0.4 mg Capsule 0.4 mg PO DAILY RF: 0 glimepiride 4 mg Tablet 4 mg PO BID RF: 0 warfarin 5 mg Tablet 5 mg PO DAILY RF: 0 digoxin 125 mcg (0.125 mg) Tablet 125 mcg PO DAILY RF: 0 Januvia 50 mg Tablet 50 mg PO DAILY RF: 0 Held spironolacton-hydrochlorothiaz 25-25 mg Tablet 1 tab PO DAILY RF: 0 Hold Instructions: Resume on 06/06/21. metformin 850 mg Tablet 850 mg PO TID RF: 0 Hold Instructions: Resume on 06/06/21. losartan 25 mg Tablet 25 mg PO DAILY RF: 0 Hold Instructions: Resume on 06/06/21. Referrals / Follow Up: Cedric Vickers MD [Primary Care Provider] - Within 1 Week Disposition Disposition (needs filled in before D/C Order can be placed): Home Health Service Charges/Coding Visit Charges Inpatient E&M: 57592 Disch Hosp
[2021-06-02 14:02] VITALS: BP 103/55; PULSE 71; RESP 20; TEMP 36.8; O2SAT 92
--- NOTE | 2021-06-03 11:43 | CASEMGMT ---
DC F/U Call: DC Date: 06/02/21 DC Diagnosis: Covid DC Disposition: Home w/HH (To be arranged-PT/OT/SN) Lace/Strata: 11/08 Received a call from patient's son Eddi Huitron to f/u on HH. List of HH providers and their medicare star ratings per patient service area discussed. States preference to try [facility] in [place] and patient resides in [place] and d/t higher star rating. Aware this brief writer will f/u wit him on acceptance of additional HH choice. Son Eddi #[phone]. States patient is doing ok beside that. Only other concern was that patient was Dc'd without a walker in which patient was using in the hospital but states that they had one at home. Aware this brief writer to look into it- Per cart review did disclose patient already had a walker on aircraft worker assessment with no further need identified for additional walker need. 1136- Called [facility] [phone], s/w Aaliyah in intake and states they have availability and to fax inquiry for review and will call this brief writer back with acceptance or denial. Mekhi, EZIOCM
--- NOTE | 2021-06-03 12:37 | CASEMGMT ---
DC F/U Call: DC Date: 06/02/21 DC Diagnosis: Covid DC Disposition: Home w/HH (To be arranged-PT/OT/SN) Lace/Strata: 11/08 Received a call from patient's son Eddi Huitron to f/u on HH. List of HH providers and their medicare star ratings per patient service area discussed. States preference to try [facility] in [place] and patient resides in [place] and d/t higher star rating. Aware this real estate underwriter will f/u wit him on acceptance of additional HH choice. Ortega Montague #[phone]. States patient is doing ok beside that. Only other concern was that patient was Dc'd without a walker in which patient was using in the hospital but states that they had one at home. 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 1136- Called [facility] [phone], s/w Aaliyah in intake and states they have availability and to fax inquiry for review and will call this real estate underwriter back with acceptance or denial. 1229- Received call back from Aaliyah at [facility] and states can accept patient. 1232- F/u call to son Galileo Huitron and updated that [facility] accepted and provided him their contact number. Aware per Social work assessemt it was noted patient did have a walker and no barriers were identified. Asking about HH for his mother and aware would have to contact her PCP to have an ordered placed. Denies any further questions or concerns. Vernon Mcmahon, RNCM
== END 2021-06-02 16:20 | disposition home health service (06) | DRG 179 ==
LOC: ED 14:50 → MS3 18:56
PROVIDERS: Admitting Provider Family Medicine; Emergency Provider Emergency Medicine; PCP Internal Medicine; Visit Provider Family Medicine
DX: U07.1 COVID-19 (principal); R53.1 Weakness; I48.91 Unspecified atrial fibrillation; I10 Essential (primary) hypertension; E11.9 Type 2 diabetes mellitus without complications; N40.0 Benign prostatic hyperplasia without lower urinary tract symptoms; E78.5 Hyperlipidemia, unspecified; G47.30 Sleep apnea, unspecified; I25.10 Atherosclerotic heart disease of native coronary artery without angina pectoris; S09.90XA Unspecified injury of head, initial encounter; W19.XXXA Unspecified fall, initial encounter; Y93.9 Activity, unspecified; Y92.9 Unspecified place or not applicable; Y99.9 Unspecified external cause status; Z95.5 Presence of coronary angioplasty implant and graft; Z79.01 Long term (current) use of anticoagulants; Z87.891 Personal history of nicotine dependence; Z79.84 Long term (current) use of oral hypoglycemic drugs; Z79.899 Other long term (current) drug therapy
CPT/HCPCS: 36415; 70450; 71045; 80048; 80162; 81001; 82962; 83735; 84100; 85025; 85610; 87070; 87205; 97110; 97162; 97166; 97530; 97535; 99285; J7030; J7040; A4216

== ENCOUNTER → 2024-03-01 | Outpatient (CLI) | payer MEDICARE, OTHER, SELFPAY ==
--- NOTE | 2024-03-01 14:00 | RAD_ITS ---
STUDY: X-RAY - LEFT KNEE REASON FOR EXAM: Male, 83 years old. PAIN TECHNIQUE: 2 views of the left knee. COMPARISON: None. FINDINGS: Normal visualized distal femur. Normal visualized proximal tibia and fibula. Normal proximal tibiofibular articulation. There is no demonstrated fracture. There is chondrocalcinosis of the medial and lateral menisci. Normal medial femorotibial compartment. Normal lateral femorotibial compartment. There is mild degenerative arthrosis of the patellofemoral articulation. There is no demonstrated joint effusion. There are atherosclerotic calcifications. 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 No demonstrated fracture. Electronically Signed: Yasmani Graf MD at 16:08 EDT ,
--- NOTE | 2024-03-01 14:00 | RAD_ITS ---
STUDY: X-RAY - PELVIS AND LEFT HIP REASON FOR EXAM: Male, 83 years old. Left hip pain. TECHNIQUE: 3 views of the pelvis and hip. COMPARISON: None. FINDINGS: There is a non-specific bowel gas pattern. Normal visualized soft tissue structures. Normal bilateral iliac wings, sacroiliac joints and visualized sacrum. Normal bilateral superior and inferior pubic rami. Normal pubic symphysis. Normal bilateral ischial tuberosities. Marked degree of joint space narrowing of the left hip joint with subchondral cysts along the acetabulum and femoral head. An element of avascular necrosis should be ruled out. Degenerative changes of the lower lumbar spine. 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 Electronically Signed: Patricio Weinberg MD at 13:59 EDT ,
== END | disposition home or self-care (01) ==
LOC: RAD 13:52
PROVIDERS: PCP Internal Medicine; Referring Provider Anesthesiology; Visit Provider Anesthesiology
DX: M25.562 Pain in left knee (principal); M25.552 Pain in left hip
CPT/HCPCS: 73502; 73560

== ENCOUNTER → 2024-03-09 | Outpatient (CLI) | payer MEDICARE, OTHER, SELFPAY ==
[2024-03-09 10:36] LABS: International Normalized Ratio 3.2; Prothrombin Time (Protime)PT. 32.6 SECONDS (11.7-14.9)
== END | disposition home or self-care (01) ==
PROVIDERS: PCP Family Medicine; Referring Provider Anesthesiology; Visit Provider Anesthesiology
DX: Z79.01 Long term (current) use of anticoagulants (principal)
CPT/HCPCS: 36415; 85610